=== PATIENT | male | born 1955 | race Caucasian/White ===

== ENCOUNTER → 2023-02-16 | Outpatient (CLI) | payer SELFPAY, OTHER ==
--- OUTSIDE RECORDS SUMMARY | 2023-02-16 07:25 | XMS RPT_ITS | CCD ---
Author Name Unknown Address [address] [place] [address] Organization [facility] Care Team Providers Care Sampler First Name Role Phone Unavailable Primary Care Provider Unavailabl e HENRY LERMA MD Referring Unavailable KEVIN SORIANO MD Admitting Unavailable KEVIN SORIANO MD Primary Care Unavailable KEVIN SORIANO MD Attending Unavailable HENRY LERMA MD Consulting Unavailable PROVIDER, UNKNOWN Consulting Unavailable PROVIDER, UNKNOWN Consulting Unavailable PROVIDER, UNKNOWN Consulting Unavailable HENRY LERMA MD Consulting Unavailable CAVANAUGHSENIA Price T Admitting Unavailable CAVANAUGHKATRIN PriceSENIA T Primary Care Unavailable SENIA CAVANAUGH Attending Unavailable PROVIDER, UNKNOWN Consulting Unavailable PROVIDER, UNKNOWN Consulting Unavailable PROVIDER, UNKNOWN Consulting Unavailable HENRY LERMA MD Consulting Unavailable HENRY LERMA MD Attending Unavailable HENRY LERMA MD Admitting Unavailable HENRY LERMA MD Primary Care Unavailable PROVIDER, UNKNOWN Consulting Unavailable PROVIDER, UNKNOWN Consulting Unavailable PROVIDER, UNKNOWN Consulting Unavailable WANDA, FANNY Carranza Attending Unavailable GIGAX, FANNY Carranza Attending Unavailable GIGAX, FANNY Carranza Attending Unavailable GIGAX, FANNY TRAORE Attending Unavailable GIGAX, FANNY TRAORE Attending Unavailable GIGAX, FANNY TRAORE Attending Unavailable GIGAX, FANNY TRAORE Attending Unavailable GIGAX, FANNY TRAORE Attending Unavailable GIGAX, FANNY Carranza Referring Unavailable GIGAX, FANNY TRAORE Attending Unavailable Medications Current Medications Medication Drug Class(es) Dates Sig (Normalized) Sig (Original) iv contrast (will be provided with radiology test) (1 source) Start: 10-08-2022 End: 10-09-2022 iv contrast (will be provided with radiology test) Indications: Elevated PSA , Encounter for observation for other suspected diseases and conditions ruled out MRI Prostate Inject, intravenously, once for 1 dose. No IV access, insert saline lock prior to the beginning of sedation, infusion, injection of imaging exam. Discontinue saline lock post exam. If Pt. has a central line or IVAD, may access for administration according to line specific nursing protocol. Once exam is complete flush line and de-access according to line specific nursing protocol in the MR contrast administration guidelines link. 1 Each 0 10/08/2022 10/09/2022 Active Completed/Discontinued Medications Medication Drug Class(es) Dates Sig (Normalized) Sig (Original) lisinopril 10 mg oral tablet (1 source) Angiotensin Converting Enzyme Inhibitor Start: 12-20-2022 take 1 tablet by mouth once lisinopril (ZESTRIL) 10 mg tablet Take 1 tablet by mouth every afternoon. 0 12/20/2022 Active Problems Active Problems Problem Classification Problem Date Documented Da te Episodic/Chronic Cancer of bladder (1 source) Malignant neoplasm of lateral wall of urinary bladder; Translations: [Malignant neoplasm of lateral wall of bladder] Chronic Cancer of bladder (3 sources) H/O: malignant neoplasm; Translations: [Personal history of malignant neoplasm of bladder] Onset: 01-17-2023 01-17-2023 Episodic Other aftercare (1 source) History of bladder neoplasm; Translations: [Encounter for follow-up examination after completed treatment for malignant neoplasm] 10-08-2022 Episodic Other screening for suspected conditions (not mental disorders or infectious disease) (12 sources) Abnormal findings on diagnostic imaging of urinary organs; Translations: [Abnormal radiologic findings on diagnostic imaging of renal pelvis, ureter, or bladder] Onset: 12-25-2022 Episodic Past or Other Problems Problem Classification Problem Date Documented Da te Episodic/Chronic Unclassified (1 source) MALIGNANT NEOPLASM OF LATERALL WALL OF BLADDER Onset: 06-27-2022 Results Test Name Value Interpretation Reference Range Facil ity Vital Signs Date Time Vital Sign Value Performing Clinician Miguel arce 01-17-2023 15:23-0500 Body height 188 cm Fanny Schwartz MD Work Phone: [facility] 01-17-2023 15:23-0500 Body weight 113.4 kg Fanny Schwartz MD Work Phone: [facility] 01-17-2023 15:23-0500 Diastolic blood pressure 90 mm[Hg] Fanny Schwartz MD Work Phone: [facility] 01-17-2023 15:23-0500 Systolic blood pressure 155 mm[Hg] Fanny Schwartz MD Work Phone: [facility] 10-08-2022 13:00-0400 Body height 188 cm Fanny Schwartz MD Work Phone: [facility] 10-08-2022 13:00-0400 Body weight 112.99 kg Fanny Schwartz MD Work Phone: [facility] 10-08-2022 13:00-0400 Diastolic blood pressure 84 mm[Hg] Fanny Schwartz MD Work Phone: [facility] 10-08-2022 13:00-0400 Heart rate 70 /min Fanny Schwartz MD Work Phone: [facility] 10-08-2022 13:00-0400 Systolic blood pressure 141 mm[Hg] Fanny Schwartz MD Work Phone: [facility] 06-25-2022 08:44-0400 Body height 188 cm Fanny Schwartz MD Work Phone: [facility] 06-25-2022 08:44-0400 Body weight 113.4 kg Fanny Schwartz MD Work Phone: [facility] 06-12-2022 13:00-0400 Body height 188 cm Fanny Schwartz MD Work Phone: [facility] 06-12-2022 13:00-0400 Body weight 113.4 kg Fanny Schwartz MD Work Phone: [facility] 06-12-2022 13:00-0400 Diastolic blood pressure 79 mm[Hg] Fanny Schwartz MD Work Phone: [facility] 06-12-2022 13:00-0400 Heart rate 58 /min Fanny Schwartz MD Work Phone: [facility] 06-12-2022 13:00-0400 SaO2% (BldA) [Mass fraction] 96 % Fanny Schwartz MD Work Phone: [facility] 06-12-2022 13:00-0400 Systolic blood pressure 134 mm[Hg] Fanny Schwatrz MD Work Phone: [facility] Encounters Encounter Date Encounter Type Care Provider Facility Start: 01-17-2023 End: 01-17-2023 ambulatory FANNY SCHWARTZ Facility:[id number] Start: 01-17-2023 End: 01-17-2023 Patient encounter procedure Fanny Schwartz MD Work Phone: [facility] Urology Procedures Date Procedure Procedure Detail Performing Clinician Start: 10-05-2022 PSA screening FANNY HOLDERTl Plan of Treatment Date Care Activity Detail Author Start: 12-18-2032 Urine microalbumin profile DTaP,Tdap,Td Vaccine (3 - Td or Tdap) [facility] Start: 10-06-2027 PROSTATE CANCER SCREENING DISCUSSION PROSTATE CANCER SCREENING DISCUSSION [facility] Start: 06-26-2027 PROSTATE CANCER SCREENING DISCUSSION PROSTATE CANCER SCREENING DISCUSSION [facility] Start: 06-25-2025 DIABETES SCREEN DIABETES SCREEN [facility] Start: 06-25-2025 Diabetes Screening Diabetes Screenmratinez g [facility] Start: 04-18-2023 End: 07-18-2023 Prostate specific Ag [Mass/volume] in Serum or Plasma PSA/PROSTSPECAG DIAG Lab Routine Elevated PSA Expected: 04/18/2023, Expires: 07/18/2023 [facility] Work Phone: Payers Date Payer Category Payer Unknown [id number] [id number] [id number] 1955 Unknown [id number] Self-pay [id number] Unknown 62 Unknown [id number] [id number] Unknown [id number] 2.16.8 [id number] Unknown [id number] [id number] [id number] Social History Date Type Detail [facility] Start: 1955 Sex Assigned At Not on file [facility] Start: 05-16-2022 [facility] Never smoked tobacco [facility] Start: 05-16-2022 Tobacco use and exposure Smokeless t obacco non-user [facility] Start: 06-12-2022 End: 01-17-2023 Alcohol intake Lifetime non-drinker (finding) [facility] Start: 06-25-2022 End: 10-08-2022 History of Social function [facility] Start: 06-25-2022 End: 10-08-2022 Tobacco use panel [facility] National Score (1-10 0), lower number is lower risk 32 [facility] Clinical Notes 05-15-2022 to 01-17-2023 Fanny Schwartz MD - 01/17/2023 3:49 PM Janine John RT(R) - 12/25/2022 7:30 AM Fanny Salinas MD - 10/08/2022 1:46 PM EDTGFanny arrington MD - 10/08/2022 1:46 PM EDT Note Date & Type Note Facility 01-17-2023 Note HNO ID: [id number] Author: Fanny Schwartz MD Service: ? Author Type: Physician Type: Progress Notes Filed: 01/17/2023 4:39 PM Note Text: January 17, 2023 Reason for Appointment Patient presents with: Follow Up: PT has no urinary complaints. RENAE Haskinskyleigh Lerma is a 67 year old male who presents today for a follow-up appointment to discuss the results of his recent MRI. The patient really had no problems following the MRI. The MRI did reveal a potential abnormality in his bladder however the patient just recently underwent cystoscopy which was negative. He had no clinical complaints today. Current Medications lisinopril (ZESTRIL) 10 mg tablet Take 1 tablet by mouth every afternoon. OTC PRODUCT Probiotic OTC PRODUCT Vitamin E OTC PRODUCT Enzymes PAST MEDICAL HISTORY Diagnosis Date Essential hypertension PAST SURGICAL HISTORY Procedure Laterality Date APPENDECTOMY ; PARATHYROIDECTOMY/EXPL PARATHYRD done by Dr. Porter CYSTOSCOPY 06/27/2022 Cysto with biopsy and fulguration of small bladder lesion PAST SURGICAL HISTORY OF 10/10/2017 right CTS release done by Moises Lerma FAMILY HISTORY Problem Relation Age of Onset Hypertension Mother Hypertension Father other (history of asthma) Father No Known Problems Sister Prostate Cancer Brother Social History Tobacco Use Smoking status: Never Smokeless tobacco: Never Vaping Use Vaping Use: Never used Substance Use Topics Alcohol use: Never Drug use: Never ALLERGIES No Known Allergies Objective BP 155/90 Ht 6' 2 (1.88m) Wt 250 lb (113.4kg) BMI 32.08 kg/(m2). Physical Exam Constitutional: Appearance: Normal appearance. Pulmonary: Effort: Pulmonary effort is normal. Neurological: Mental Status: He is alert and oriented to person, place, and time. ASSESSMENT/PLAN: 1. Elevated PSA - ICD9: 790.93, ICD10: R97.20 (primary diagnosis) The patient's most recent PSA was up to 4.9 ng/mL. The MRI revealed a PI-RADS 3 lesion in the transition zone. I had a long conversation with him and his discussing how to proceed. I explained to them that the risk of high-grade malignancy is actually fairly low with a PI-RADS 3 lesion. After discussing his options the patient said that he would like to proceed with close follow-up regarding the PSA. We will see him back in 3 months with another PSA prior to the visit. The patient does understand that there is a risk of prostate cancer and not proceeding with a biopsy could result in delay of diagnosis. If the PSA seems to be rising precipitously then we will revisit the biopsy. - PSA/PROSTSPECAG DIAG 2. Personal history of malignant neoplasm of bladder - ICD9: V10.51, ICD10: Z85.51 The patient cystoscopy was negative in September. He will be due for his repeat cystoscopy in September of next year. Fanny Schwartz MD Follow Up Return in about 3 months (around 04/18/2023) for PSA prior. [facility] 01-17-2023 History of Presen t illness Narrative January 17, 2023 Reason for Appointment Patient presents with: Follow Up: PT has no urinary complaints. HPI David Lerma is a 67 year old male who presents today for a follow-up appointment to discuss the results of his recent MRI. The patient really had no problems following the MRI. The MRI did reveal a potential abnormality in his bladder however the patient just recently underwent cystoscopy which was negative. He had no clinical complaints today. Current Medications lisinopril (ZESTRIL) 10 mg tablet Take 1 tablet by mouth every afternoon. OTC PRODUCT Probiotic OTC PRODUCT Vitamin E OTC PRODUCT Enzymes PAST MEDICAL HISTORY Diagnosis Date Essential hypertension PAST SURGICAL HISTORY Procedure Laterality Date APPENDECTOMY ; PARATHYROIDECTOMY/EXPL PARATHYRD done by Dr. Porter CYSTOSCOPY 06/27/2022 Cysto with biopsy and fulguration of small bladder lesion PAST SURGICAL HISTORY OF 10/10/2017 right CTS release done by Moises Lerma FAMILY HISTORY Problem Relation Age of Onset Hypertension Mother Hypertension Father other (history of asthma) Father No Known Problems Sister Prostate Cancer Brother Social History Tobacco Use Smoking status: Never Smokeless tobacco: Never Vaping Use Vaping Use: Never used Substance Use Topics Alcohol use: Never Drug use: Never ALLERGIES No Known Allergies Objective BP 155/90 Ht 6' 2 (1.88m) Wt 250 lb (113.4kg) BMI 32.08 kg/(m^2). Physical Exam Constitutional: Appearance: Normal appearance. Pulmonary: Effort: Pulmonary effort is normal. Neurological: Mental Status: He is alert and oriented to person, place, and time. ASSESSMENT/PLAN: 1. Elevated PSA - ICD9: 790.93, ICD10: R97.20 (primary diagnosis) The patient's most recent PSA was up to 4.9 ng/mL. The MRI revealed a PI-RADS 3 lesion in the transition zone. I had a long conversation with him and his discussing how to proceed. I explained to them that the risk of high-grade malignancy is actually fairly low with a PI-RADS 3 lesion. After discussing his options the patient said that he would like to proceed with close follow-up regarding the PSA. We will see him back in 3 months with another PSA prior to the visit. The patient does understand that there is a risk of prostate cancer and not proceeding with a biopsy could result in delay of diagnosis. If the PSA seems to be rising precipitously then we will revisit the biopsy. - PSA/PROSTSPECAG DIAG 2. Personal history of malignant neoplasm of bladder - ICD9: V10.51, ICD10: Z85.51 The patient cystoscopy was negative in September. He will be due for his repeat cystoscopy in September of next year. Fanny Schwartz MD Follow Up Return in about 3 months (around 04/18/2023) for PSA prior. documented in this encounter [facility] 12-25-2022 Note HNO ID: [id number] Author: Janine Hilliard RT(R) Service: Radiology Author Type: Technologist Type: Progress Notes Filed: 12/25/2022 7:36 AM Note Text: Radiology Service Progress Note DATE OF SERVICE: December 25, 2022 TIME: 7:30 AM PATIENT IDENTITY VERIFICATION COMPLETED USING TWO (2) STANDARD IDENTIFIERS: Name and Date of confirmed by patient verbally. FALL SCREENING: Has the patient had 2 falls in the last year or 1 fall with injury or currently using an Ambulatory Assistive Device (Walker, Cane, Wheelchair, Crutches, etc.)? No PATIENT GENDER DATA: Male PATIENT RELEVANT IMPLANT DATA REVIEWED: Yes ALLERGIES: Reviewed and unchanged CONTRAST ALLERGY: NO. EXAM: MRI - CONTRAST TYPE: GROUP II PERIPHERAL IV DATA: Ambulatory: A peripheral IV was started in the Left antecubital site with a Angio cath: 22 gauge. RADIOLOGY DEPARTMENT: MR; Exam(s) Completed: Body: Prostate SIGNATURE: RT Carlitos(R) PATIENT NAME: David Lerma DATE: December 25, 2022 TIME: 7:[address] [facility] 12-25-2022 History of Presen t illness Narrative Radiology Service Progress Note DATE OF SERVICE: December 25, 2022 TIME: 7:30 AM PATIENT IDENTITY VERIFICATION COMPLETED USING TWO (2) STANDARD IDENTIFIERS: Name and Date of confirmed by patient verbally. FALL SCREENING: Has the patient had 2 falls in the last year or 1 fall with injury or currently using an Ambulatory Assistive Device (Walker, Cane, Wheelchair, Crutches, etc.)? No PATIENT GENDER DATA: Male PATIENT RELEVANT IMPLANT DATA REVIEWED: Yes ALLERGIES: Reviewed and unchanged CONTRAST ALLERGY: NO. EXAM: MRI - CONTRAST TYPE: GROUP II PERIPHERAL IV DATA: Ambulatory: A peripheral IV was started in the Left antecubital site with a Angio cath: 22 gauge. RADIOLOGY DEPARTMENT: MR; Exam(s) Completed: Body: Prostate SIGNATURE: RT Carlitos(R) PATIENT NAME: David Lerma DATE: December 25, 2022 TIME: 7:30 AM documented in this encounter [facility] 10-08-2022 Note HNO ID: [id number] Author: Fanny Schwartz MD Service: ? Author Type: Physician Type: Progress Notes Filed: 10/08/2022 1:48 PM Note Text: October 08, 2022 Reason for Appointment Patient presents with: Cystoscopy-1: Denies any new urinary pain or problems. Denies bloody urine. HPI David Lerma is a 67 year old male who presents today for a follow-up appointment as well as cystoscopy. Overall the patient is doing well. He said that he is urinating without any difficulty. He feels like he has a good force of stream and denies hesitancy or incomplete emptying. The patient underwent a serum PSA determination recently and it was up to 4.9 ng/mL. Current Medications iv contrast (will be provided with radiology test) MRI Prostate Inject, intravenously, once for 1 dose. No IV access, insert saline lock prior to the beginning of sedation, infusion, injection of imaging exam. Discontinue saline lock post exam. If Pt. has a central line or IVAD, may access for administration according to line specific nursing protocol. Once exam is complete flush line and de-access according to line specific nursing protocol in the MR contrast administration guidelines link. OTC PRODUCT Probiotic OTC PRODUCT Vitamin E OTC PRODUCT Enzymes History reviewed. No pertinent past medical history. PAST SURGICAL HISTORY Procedure Laterality Date APPENDECTOMY ; PARATHYROIDECTOMY/EXPL PARATHYRD done by Dr. Porter CYSTOSCOPY 06/27/2022 Cysto with biopsy and fulguration of small bladder lesion PAST SURGICAL HISTORY OF 10/10/2017 right CTS release done by Moises Lerma FAMILY HISTORY Problem Relation Age of Onset Hypertension Mother Hypertension Father other (history of asthma) Father No Known Problems Sister Prostate Cancer Brother Social History Tobacco Use Smoking status: Never Smokeless tobacco: Never Vaping Use Vaping Use: Never used Substance Use Topics Alcohol use: Never Drug use: Never ALLERGIES No Known Allergies Objective BP 141/84 Pulse 70 Ht 6' 2 (1.88m) Wt 249 lb 1.6 oz (113.0kg) BMI 31.97 kg/(m2). Physical Exam Constitutional: Appearance: Normal appearance. Pulmonary: Effort: Pulmonary effort is normal. Neurological: Mental Status: He is alert and oriented to person, place, and time. ASSESSMENT/PLAN: 1. Encounter for follow-up surveillance of bladder cancer - ICD9: V67.9, V10.51, ICD10: Z08, Z85.51 (primary diagnosis) The patient underwent surveillance cystoscopy which was negative for recurrence. He just needs annual cystoscopy going forward. 2. Elevated PSA - ICD9: 790.93, ICD10: R97.20 The patient's PSA is trending upward. I explained to him that this can be an indicator of prostate cancer. I recommended that we make arrangements for him to undergo an MRI of the prostate. We did discuss the fact that if it shows any concerning lesions we would need to consider a fusion biopsy. - MRI PROSTATE WO/W IVCON - MRI 3D POST PROCESSING - IV CONTRAST (RADIOLOGY PROCEDURE) 3. Encounter for observation for other suspected diseases and conditions ruled out - ICD9: V71.89, ICD10: Z03.89 - MRI PROSTATE WO/W IVCON - MRI 3D POST PROCESSING - IV CONTRAST (RADIOLOGY PROCEDURE) Fanny Schwartz MD Follow Up Return for After MRI. [facility] 10-08-2022 Note HNO ID: [id number] Author: Fanny Schwartz MD Service: ? Author Type: Physician Type: Procedures Filed: 10/08/2022 2:02 PM Note Text: October 08, 2022 Reason for Appointment Patient presents with: Cystoscopy-1: Denies any new urinary pain or problems. Denies bloody urine. RENAE Lerma is a 67 year old male who presents today for cystoscopy. Pre op dx: History of bladder cancer Post op dx: Same Procedure: Flexible cystoscopy Description of procedure: The patient was taken to the procedure room and an appropriate informed consent was obtained. He was placed in the supine position on the procedure table and prepped in the usual fashion. 2% Xylocaine- jelly was instilled into the urethra in a retrograde fashion. The flexible cystoscope was inserted through the urethra into the bladder The entire bladder mucosa was scrutinized and there were no stones, tumors, or foreign bodies. The ureteral orifices were in their normal location and configuration. With retroflexion of the scope there was no evidence of pathology the bladder neck. As the scope was withdrawn the prostatic fossa was carefully evaluated and there was moderate macroscopic BPH. The remainder of the urethra was normal. The patient tolerated the procedure well. BP 141/84 Pulse 70 Ht 6' 2 (1.88m) Wt 249 lb 1.6 oz (113.0kg) BMI 31.97 kg/(m2). Physical Exam UNIVERSAL PROTOCOL / SAFETY CHECKLIST Procedure to be Performed: cysto Sign In: A Moment of CARE was completed. Personnel directly involved with the procedure wore the appropriate PPE (Personal Protective Equipment). No special equipment needed. Patient/Surrogate Stated/Verified: PATIENT VERIFIED(optional for EMERGENT procedures): Patient name, Date of , Relevant allergies, and The intended procedure Time Out Communication: Intended patient and procedure match the source documents. Consent documented and matches the intended procedure. No relevant labs, photos, and/or imaging studies were applicable for review. No correct side/site applicable for marking and visibility. Medications required for procedure verified. No fire risk assessment and interventions applicable. No implant(s) inserted. Sign Out: SIGN OUT (optional for EMERGENT procedures): No specimen collected. All instruments, equipment, possible retained foreign bodies accounted for. Post-procedure follow-up management communicated and Plan of Care Visit completed when applicable. Radha Hogan RN Return for After MRI. [facility] 10-08-2022 History of Presen t illness Narrative October 08, 2022 Reason for Appointment Patient presents with: Cystoscopy-1: Denies any new urinary pain or problems. Denies bloody urine. RENAE Lerma is a 67 year old male who presents today for a follow-up appointment as well as cystoscopy. Overall the patient is doing well. He said that he is urinating without any difficulty. He feels like he has a good force of stream and denies hesitancy or incomplete emptying. The patient underwent a serum PSA determination recently and it was up to 4.9 ng/mL. Current Medications iv contrast (will be provided with radiology test) MRI Prostate Inject, intravenously, once for 1 dose. No IV access, insert saline lock prior to the beginning of sedation, infusion, injection of imaging exam. Discontinue saline lock post exam. If Pt. has a central line or IVAD, may access for administration according to line specific nursing protocol. Once exam is complete flush line and de-access according to line specific nursing protocol in the MR contrast administration guidelines link. OTC PRODUCT Probiotic OTC PRODUCT Vitamin E OTC PRODUCT Enzymes History reviewed. No pertinent past medical history. PAST SURGICAL HISTORY Procedure Laterality Date APPENDECTOMY ; PARATHYROIDECTOMY/EXPL PARATHYRD done by Dr. Porter CYSTOSCOPY 06/27/2022 Cysto with biopsy and fulguration of small bladder lesion PAST SURGICAL HISTORY OF 10/10/2017 right CTS release done by Moises Lerma FAMILY HISTORY Problem Relation Age of Onset Hypertension Mother Hypertension Father other (history of asthma) Father No Known Problems Sister Prostate Cancer Brother Social History Tobacco Use Smoking status: Never Smokeless tobacco: Never Vaping Use Vaping Use: Never used Substance Use Topics Alcohol use: Never Drug use: Never ALLERGIES No Known Allergies Objective BP 141/84 Pulse 70 Ht 6' 2 (1.88m) Wt 249 lb 1.6 oz (113.0kg) BMI 31.97 kg/(m^2). Physical Exam Constitutional: Appearance: Normal appearance. Pulmonary: Effort: Pulmonary effort is normal. Neurological: Mental Status: He is alert and oriented to person, place, and time. ASSESSMENT/PLAN: 1. Encounter for follow-up surveillance of bladder cancer - ICD9: V67.9, V10.51, ICD10: Z08, Z85.51 (primary diagnosis) The patient underwent surveillance cystoscopy which was negative for recurrence. He just needs annual cystoscopy going forward. 2. Elevated PSA - ICD9: 790.93, ICD10: R97.20 The patient's PSA is trending upward. I explained to him that this can be an indicator of prostate cancer. I recommended that we make arrangements for him to undergo an MRI of the prostate. We did discuss the fact that if it shows any concerning lesions we would need to consider a fusion biopsy. - MRI PROSTATE WO/W IVCON - MRI 3D POST PROCESSING - IV CONTRAST (RADIOLOGY PROCEDURE) 3. Encounter for observation for other suspected diseases and conditions ruled out - ICD9: V71.89, ICD10: Z03.89 - MRI PROSTATE WO/W IVCON - MRI 3D POST PROCESSING - IV CONTRAST (RADIOLOGY PROCEDURE) Fanny Schwartz MD Follow Up Return for After MRI. documented in this encounter [facility] 10-08-2022 Procedure note October 08, 2022 Reason for Appointment Patient presents with: Cystoscopy-1: Denies any new urinary pain or problems. Denies bloody urine. HPI David Lerma is a 67 year old male who presents today for cystoscopy. Pre op dx: History of bladder cancer Post op dx: Same Procedure: Flexible cystoscopy Description of procedure: The patient was taken to the procedure room and an appropriate informed consent was obtained. He was placed in the supine position on the procedure table and prepped in the usual fashion. 2% Xylocaine- jelly was instilled into the urethra in a retrograde fashion. The flexible cystoscope was inserted through the urethra into the bladder The entire bladder mucosa was scrutinized and there were no stones, tumors, or foreign bodies. The ureteral orifices were in their normal location and configuration. With retroflexion of the scope there was no evidence of pathology the bladder neck. As the scope was withdrawn the prostatic fossa was carefully evaluated and there was moderate macroscopic BPH. The remainder of the urethra was normal. The patient tolerated the procedure well. BP 141/84 Pulse 70 Ht 6' 2 (1.88m) Wt 249 lb 1.6 oz (113.0kg) BMI 31.97 kg/(m^2). Physical Exam UNIVERSAL PROTOCOL / SAFETY CHECKLIST Procedure to be Performed: cysto Sign In: A Moment of CARE was completed. Personnel directly involved with the procedure wore the appropriate PPE (Personal Protective Equipment). No special equipment needed. Patient/Surrogate Stated/Verified: PATIENT VERIFIED(optional for EMERGENT procedures): Patient name, Date of , Relevant allergies, and The intended procedure Time Out Communication: Intended patient and procedure match the source documents. Consent documented and matches the intended procedure. No relevant labs, photos, and/or imaging studies were applicable for review. No correct side/site applicable for marking and visibility. Medications required for procedure verified. No fire risk assessment and interventions applicable. No implant(s) inserted. Sign Out: SIGN OUT (optional for EMERGENT procedures): No specimen collected. All instruments, equipment, possible retained foreign bodies accounted for. Post-procedure follow-up management communicated and Plan of Care Visit completed when applicable. Radha Hogan RN Return for After MRI. documented in this encounter [facility] 07-06-2022 Note HNO ID: [id number] Author: Fanny Schwartz MD Service: ? Author Type: Physician Type: Progress Notes Filed: 07/06/2022 10:55 AM Note Text: July 06, 2022 Reason for Appointment Patient presents with: Follow Up: 2 week Surgery F/u. Pt states he is doing well. RENAE David Lerma is a 66 year old male who presents today for a follow-up appointment. Clinically the patient has done very well since his recent bladder biopsy and fulguration. The patient said that he really had no problems following the procedure. He notes that his urine has been clear. The histology was consistent with a low-grade transitional cell carcinoma. There was no evidence of invasion. The patient underwent a serum PSA determination prior to the procedure and it was slightly elevated at 4.2 ng/mL. Current Medications OTC PRODUCT Probiotic OTC PRODUCT Vitamin E OTC PRODUCT Enzymes History reviewed. No pertinent past medical history. PAST SURGICAL HISTORY Procedure Laterality Date APPENDECTOMY ; PARATHYROIDECTOMY/EXPL PARATHYRD done by Dr. Porter CYSTOSCOPY 06/27/2022 Cysto with biopsy and fulguration of small bladder lesion PAST SURGICAL HISTORY OF 10/10/2017 right CTS release done by Moises Lerma FAMILY HISTORY Problem Relation Age of Onset Hypertension Mother Hypertension Father other (history of asthma) Father No Known Problems Sister Prostate Cancer Brother Social History Tobacco Use Smoking status: Never Smokeless tobacco: Never Vaping Use Vaping Use: Never used Substance Use Topics Alcohol use: Never Drug use: Never ALLERGIES No Known Allergies Objective BP 133/78 Pulse 58 Ht 6' 2 (1.88m) Wt 250 lb (113.4kg) SpO2 98% BMI 32.08 kg/(m2). Physical Exam Constitutional: Appearance: Normal appearance. Pulmonary: Effort: Pulmonary effort is normal. Neurological: Mental Status: He is alert and oriented to person, place, and time. ASSESSMENT/PLAN: 1. Malignant neoplasm of lateral wall of urinary bladder (HCC) - ICD9: 188.2, ICD10: C67.2 (primary diagnosis) The patient is a 66-year-old white male with a new diagnosis of low-grade, noninvasive transitional cell carcinoma. I went over this diagnosis in detail with him and his today. We discussed the fact that there is a very low likelihood of metastatic disease however there is a risk of recurrence. Therefore, we will plan to see him back in 3 months for cystoscopy. All of their questions were answered today. - PSA/PROSTSPECAG DIAG 2. Elevated PSA - ICD9: 790.93, ICD10: R97.20 The patient's PSA was mildly elevated. We will plan to repeat it prior to his next appointment. Fanny Schwartz MD Follow Up Return in about 3 months (around 10/06/2022) for Cysto, PSA prior. [facility] 06-25-2022 Note HNO ID: [id number] Author: Fanyn Schwartz MD Service: ? Author Type: Physician Type: Procedures Filed: 06/25/2022 9:34 AM Note Text: June 25, 2022 Reason for Appointment Patient presents with: Cystoscopy-1: Denies any urinary pain or problems. RENAE Lerma is a 66 year old male who presents today for cystoscopy. Pre op dx: Possible bladder tumor Post op dx: Small bladder tumors right lateral wall Procedure: Flexible cystoscopy Description of procedure: The patient was taken to the procedure room and an appropriate informed consent was obtained. He was placed in the supine position on the procedure table and prepped in the usual fashion. 2% Xylocaine- jelly was instilled into the urethra in a retrograde fashion. The flexible cystoscope was inserted through the urethra into the bladder The entire bladder mucosa was scrutinized and adjacent to the right ureteral orifice was a small papillary tumor. There was also an additional tiny tumor more laterally on the right lateral wall. The ureteral orifices were in their normal location and configuration. With retroflexion of the scope there was no evidence of pathology the bladder neck. As the scope was withdrawn the prostatic fossa was carefully evaluated and there was moderate macroscopic BPH. The remainder of the urethra was normal. The patient tolerated the procedure well. Ht 6' 2 (1.88m) Wt 250 lb (113.4kg) BMI 32.08 kg/(m2). Physical Exam UNIVERSAL PROTOCOL / SAFETY CHECKLIST Procedure to be Performed: Cysto Sign In: A Moment of CARE was completed. Personnel directly involved with the procedure wore the appropriate PPE (Personal Protective Equipment). No special equipment needed. Patient/Surrogate Stated/Verified: PATIENT VERIFIED(optional for EMERGENT procedures): Patient name, Date of , Relevant allergies, and The intended procedure Time Out Communication: Intended patient and procedure match the source documents. Consent documented and matches the intended procedure. Relevant labs, photos, and/or imaging studies have been reviewed. No correct side/site applicable for marking and visibility. Medications required for procedure verified. No fire risk assessment and interventions applicable. No implant(s) inserted. Sign Out: SIGN OUT (optional for EMERGENT procedures): No specimen collected. All instruments, equipment, possible retained foreign bodies accounted for. Post-procedure follow-up management communicated and Plan of Care Visit completed when applicable. Radha Hogan Return for Schedule surgery. [facility] 06-25-2022 Note HNO ID: [id number] Author: Fanny Schwartz MD Service: ? Author Type: Physician Type: Progress Notes Filed: 06/25/2022 9:32 AM Note Text: June 25, 2022 Reason for Appointment Patient presents with: Cystoscopy-1: Denies any urinary pain or problems. RENAE Lerma is a 66 year old male who presents today for cystoscopy. The patient denies interval complaints. Again, he underwent a CT scan which revealed a potential bladder mass. Current Medications OTC PRODUCT Probiotic OTC PRODUCT Vitamin E OTC PRODUCT Enzymes History reviewed. No pertinent past medical history. PAST SURGICAL HISTORY Procedure Laterality Date APPENDECTOMY ; PARATHYROIDECTOMY/EXPL PARATHYRD done by Dr. Porter PAST SURGICAL HISTORY OF 10/10/2017 right CTS release done by Moises Lerma FAMILY HISTORY Problem Relation Age of Onset Hypertension Mother Hypertension Father other (history of asthma) Father No Known Problems Sister Prostate Cancer Brother Social History Tobacco Use Smoking status: Never Smokeless tobacco: Never Vaping Use Vaping Use: Never used Substance Use Topics Alcohol use: Never Drug use: Never ALLERGIES No Known Allergies Objective Ht 6' 2 (1.88m) Wt 250 lb (113.4kg) BMI 32.08 kg/(m2). Physical Exam Constitutional: Appearance: Normal appearance. HENT: Head: Normocephalic. Nose: Nose normal. Cardiovascular: Rate and Rhythm: Normal rate and regular rhythm. Heart sounds: Normal heart sounds. No murmur heard. Pulmonary: Effort: Pulmonary effort is normal. Breath sounds: Normal breath sounds. No wheezing or rales. Abdominal: General: Bowel sounds are normal. Palpations: There is no hepatomegaly or splenomegaly. Tenderness: There is no abdominal tenderness. There is no guarding. Hernia: No hernia is present. Musculoskeletal: Cervical back: Neck supple. Lumbar back: Normal. Lymphadenopathy: Cervical: No cervical adenopathy. Skin: Findings: No rash. Nails: There is no clubbing. Neurological: Mental Status: He is oriented to person, place, and time. ASSESSMENT/PLAN: 1. 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 I explained to him that these are likely very low-grade transitional cell carcinoma. I recommended we make arrangements for him to go to the operating room for cystoscopy, biopsy and fulguration of these lesions. Given that these have a well differentiated appearance we will not plan to administer Mitomycin-C. I went over the procedure in detail with him and his today. We discussed potential risks, benefits, and alternatives. They both expressed understanding of the procedure as well as its attendant risks and want to proceed. We will also get a screening PSA at the time of his blood draw. - BASIC METABOLIC PNL - CBC - URINE CULTURE - UNION UROL SURGICAL PROCEDURES - PSASc 2. Screening for heart disease - ICD9: V81.2, ICD10: Z13.6 Preop EKG. - ECG COMPLETE Fanny Schwartz MD Follow Up Return for Schedule surgery. [facility] 06-25-2022 Procedure note June 25, 2022 Reason for Appointment Patient presents with: Cystoscopy-1: Denies any urinary pain or problems. RENAE Lerma is a 66 year old male who presents today for cystoscopy. Pre op dx: Possible bladder tumor Post op dx: Small bladder tumors right lateral wall Procedure: Flexible cystoscopy Description of procedure: The patient was taken to the procedure room and an appropriate informed consent was obtained. He was placed in the supine position on the procedure table and prepped in the usual fashion. 2% Xylocaine- jelly was instilled into the urethra in a retrograde fashion. The flexible cystoscope was inserted through the urethra into the bladder The entire bladder mucosa was scrutinized and adjacent to the right ureteral orifice was a small papillary tumor. There was also an additional tiny tumor more laterally on the right lateral wall. The ureteral orifices were in their normal location and configuration. With retroflexion of the scope there was no evidence of pathology the bladder neck. As the scope was withdrawn the prostatic fossa was carefully evaluated and there was moderate macroscopic BPH. The remainder of the urethra was normal. The patient tolerated the procedure well. Ht 6' 2 (1.88m) Wt 250 lb (113.4kg) BMI 32.08 kg/(m^2). Physical Exam UNIVERSAL PROTOCOL / SAFETY CHECKLIST Procedure to be Performed: Cysto Sign In: A Moment of CARE was completed. Personnel directly involved with the procedure wore the appropriate PPE (Personal Protective Equipment). No special equipment needed. Patient/Surrogate Stated/Verified: PATIENT VERIFIED(optional for EMERGENT procedures): Patient name, Date of , Relevant allergies, and The intended procedure Time Out Communication: Intended patient and procedure match the source documents. Consent documented and matches the intended procedure. Relevant labs, photos, and/or imaging studies have been reviewed. No correct side/site applicable for marking and visibility. Medications required for procedure verified. No fire risk assessment and interventions applicable. No implant(s) inserted. Sign Out: SIGN OUT (optional for EMERGENT procedures): No specimen collected. All instruments, equipment, possible retained foreign bodies accounted for. Post-procedure follow-up management communicated and Plan of Care Visit completed when applicable. Radha Hogan Return for Schedule surgery. documented in this encounter [facility] 06-25-2022 History of Presen t illness Narrative June 25, 2022 Reason for Appointment Patient presents with: Cystoscopy-1: Denies any urinary pain or problems. RENAE David Leram is a 66 year old male who presents today for cystoscopy. The patient denies interval complaints. Again, he underwent a CT scan which revealed a potential bladder mass. Current Medications OTC PRODUCT Probiotic OTC PRODUCT Vitamin E OTC PRODUCT Enzymes History reviewed. No pertinent past medical history. PAST SURGICAL HISTORY Procedure Laterality Date APPENDECTOMY ; PARATHYROIDECTOMY/EXPL PARATHYRD done by Dr. Porter PAST SURGICAL HISTORY OF 10/10/2017 right CTS release done by Moises Lerma FAMILY HISTORY Problem Relation Age of Onset Hypertension Mother Hypertension Father other (history of asthma) Father No Known Problems Sister Prostate Cancer Brother Social History Tobacco Use Smoking status: Never Smokeless tobacco: Never Vaping Use Vaping Use: Never used Substance Use Topics Alcohol use: Never Drug use: Never ALLERGIES No Known Allergies Objective Ht 6' 2 (1.88m) Wt 250 lb (113.4kg) BMI 32.08 kg/(m^2). Physical Exam Constitutional: Appearance: Normal appearance. HENT: Head: Normocephalic. Nose: Nose normal. Cardiovascular: Rate and Rhythm: Normal rate and regular rhythm. Heart sounds: Normal heart sounds. No murmur heard. Pulmonary: Effort: Pulmonary effort is normal. Breath sounds: Normal breath sounds. No wheezing or rales. Abdominal: General: Bowel sounds are normal. Palpations: There is no hepatomegaly or splenomegaly. Tenderness: There is no abdominal tenderness. There is no guarding. Hernia: No hernia is present. Musculoskeletal: Cervical back: Neck supple. Lumbar back: Normal. Lymphadenopathy: Cervical: No cervical adenopathy. Skin: Findings: No rash. Nails: There is no clubbing. Neurological: Mental Status: He is oriented to person, place, and time. ASSESSMENT/PLAN: 1. 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 I explained to him that these are likely very low-grade transitional cell carcinoma. I recommended we make arrangements for him to go to the operating room for cystoscopy, biopsy and fulguration of these lesions. Given that these have a well differentiated appearance we will not plan to administer Mitomycin-C. I went over the procedure in detail with him and his today. We discussed potential risks, benefits, and alternatives. They both expressed understanding of the procedure as well as its attendant risks and want to proceed. We will also get a screening PSA at the time of his blood draw. - BASIC METABOLIC PNL - CBC - URINE CULTURE - UNION UROL SURGICAL PROCEDURES - PSASc 2. Screening for heart disease - ICD9: V81.2, ICD10: Z13.6 Preop EKG. - ECG COMPLETE Fanny Schwartz MD Follow Up Return for Schedule surgery. documented in this encounter [facility] 06-12-2022 Note HNO ID: [id number] Author: Fanny Schwartz MD Service: ? Author Type: Physician Type: Progress Notes Filed: 06/12/2022 1:09 PM Note Text: June 12, 2022 Reason for Appointment Patient presents with: Consult: Bladder mass found on CT. Pt denies any urinary issues. HPI David Lerma is a 66 year old male who presents today for further evaluation of possible bladder lesion. The patient was recently admitted to an outside hospital with chest pain. The work-up was negative however was found to have a possible lesion in his bladder on ultrasound. The patient denies any lower urinary tract symptoms. He also denies any gross hematuria. He notes that he had a PSA about 6 months ago. Current Medications OTC PRODUCT Probiotic OTC PRODUCT Vitamin E OTC PRODUCT Enzymes History reviewed. No pertinent past medical history. PAST SURGICAL HISTORY Procedure Laterality Date APPENDECTOMY ; PARATHYROIDECTOMY/EXPL PARATHYRD done by Dr. Porter PAST SURGICAL HISTORY OF 10/10/2017 right CTS release done by Moises Maria Guadalupe FAMILY HISTORY Problem Relation Age of Onset Hypertension Mother Hypertension Father other (history of asthma) Father No Known Problems Sister Prostate Cancer Brother Social History Tobacco Use Smoking status: Never Smokeless tobacco: Never Substance Use Topics Alcohol use: Never Drug use: Never ALLERGIES No Known Allergies Objective BP 134/79 Pulse 58 Ht 6' 2 (1.88m) Wt 250 lb (113.4kg) SpO2 96% BMI 32.08 kg/(m2). Physical Exam Constitutional: Appearance: Normal appearance. Pulmonary: Effort: Pulmonary effort is normal. Genitourinary: Penis: Normal. Testes: Normal. Comments: Prostate enlarged somewhat, no nodules, NT Neurological: Mental Status: He is alert and oriented to person, place, and time. ASSESSMENT/PLAN: 1. Abnormal radiologic findings on diagnostic imaging of renal pelvis, ureter, or bladder - ICD9: 793.5, ICD10: R93.41 Patient has a possible lesion in his bladder. I explained to him that this could be a bladder cancer. I recommended that he return for flexible cystoscopy for diagnosis. I went over this procedure in detail with him and his today. We discussed potential risks, benefits, and alternatives. The patient expressed understanding of the procedure as well as its attendant risks and wants to proceed. - UA DIP, URINE (POC) Fanny Schwartz MD Follow Up Return for Cysto, also get recent PSA from [facility] . [facility] 06-12-2022 History of Presen t illness Narrative June 12, 2022 Reason for Appointment Patient presents with: Consult: Bladder mass found on CT. Pt denies any urinary issues. HPI David Lerma is a 66 year old male who presents today for further evaluation of possible bladder lesion. The patient was recently admitted to an outside hospital with chest pain. The work-up was negative however was found to have a possible lesion in his bladder on ultrasound. The patient denies any lower urinary tract symptoms. He also denies any gross hematuria. He notes that he had a PSA about 6 months ago. Current Medications OTC PRODUCT Probiotic OTC PRODUCT Vitamin E OTC PRODUCT Enzymes History reviewed. No pertinent past medical history. PAST SURGICAL HISTORY Procedure Laterality Date APPENDECTOMY ; PARATHYROIDECTOMY/EXPL PARATHYRD done by Dr. Porter PAST SURGICAL HISTORY OF 10/10/2017 right CTS release done by Moises Lerma FAMILY HISTORY Problem Relation Age of Onset Hypertension Mother Hypertension Father other (history of asthma) Father No Known Problems Sister Prostate Cancer Brother Social History Tobacco Use Smoking status: Never Smokeless tobacco: Never Substance Use Topics Alcohol use: Never Drug use: Never ALLERGIES No Known Allergies Objective BP 134/79 Pulse 58 Ht 6' 2 (1.88m) Wt 250 lb (113.4kg) SpO2 96% BMI 32.08 kg/(m^2). Physical Exam Constitutional: Appearance: Normal appearance. Pulmonary: Effort: Pulmonary effort is normal. Genitourinary: Penis: Normal. Testes: Normal. Comments: Prostate enlarged somewhat, no nodules, NT Neurological: Mental Status: He is alert and oriented to person, place, and time. ASSESSMENT/PLAN: 1. Abnormal radiologic findings on diagnostic imaging of renal pelvis, ureter, or bladder - ICD9: 793.5, ICD10: R93.41 Patient has a possible lesion in his bladder. I explained to him that this could be a bladder cancer. I recommended that he return for flexible cystoscopy for diagnosis. I went over this procedure in detail with him and his today. We discussed potential risks, benefits, and alternatives. The patient expressed understanding of the procedure as well as its attendant risks and wants to proceed. - UA DIP, URINE (POC) Fanny Schwartz MD Follow Up Return for Cysto, also get recent PSA from [facility] . documented in this encounter [facility] 05-15-2022 Miscellaneous Notes Formattin g of this note might be different from the original. Referral Bladder mass found on CT Schedule w/ Dr Schwartz on 06/12/22 @ 1 pm if patient is agreeable. Left VM for the patient to contact the office. documented in this encounter [facility] Malignant neoplasm of lateral wall of urinary bladder (HCC)- Primary Malignant neoplasm of lateral wall of urinary bladder Screening for heart disease Screening for other and unspecified cardiovascular conditions Screening PSA (prostate specific antigen) Special screening for malignant neoplasm of prostate [facility] Diagnosis Encounter for follow-up surveillance of bladder cancer- Primary Unspecified follow-up examination Elevated PSA Elevated prostate specific antigen (PSA) Encounter for observation for other suspected diseases and conditions ruled out [facility] Diagnosis Elevated PSA Elevated prostate specific antigen (PSA) Encounter for observation for other suspected diseases and conditions ruled out [facility] Diagnosis Elevated PSA- Primary Elevated prostate specific antigen (PSA) Personal history of malignant neoplasm of bladder [facility] Outpatient Procedure (Routine) - Pending Review Specialty Diagnoses / Procedures Referred By Contac t Referred To Contact [facility] Diagnoses Screening for heart disease Procedures ECG COMPLETE ECG ROUTINE ECG W/LEAST 12 LDS W/I&R Fanny Schwartz MD [address] [place] [address] [address] [facility] [place] [address] [place] [id number] Referral ID Status Reason Start Date Expiration Date Visits Requested Visits Authorized [id number] Pending Review Auto-Generat ed Referral 06/25/2022 06/25/2023 1 1 [facility] Summary Purpose Family History No Family History Records FoundNo Family History Records FoundNo Family History Records FoundNo Family History Records FoundNo Family History Records FoundNo Family History Records FoundNo Family History Records FoundNo Family History Records Found Advance Directives No Advanced Directives Records FoundNo Advanced Directives Records FoundNo Advanced Directives Records FoundNo Advanced Directives Records FoundNo Advanced Directives Records FoundNo Advanced Directives Records FoundNo Advanced Directives Records FoundNo Advanced Directives Records Found Reason for Referral Specialty Diagnoses / Procedures Referred By Contac t Referred To Contact [facility] Diagnoses Elevated PSA Encounter for observation for other suspected diseases and conditions ruled out Procedures MRI 3D POST PROCESSING 3D RENDERING W/INTERP&POSTPROC DIFF WORK STATION Fanny Schwartz MD [address] [place] [address] [address] [place] [phone] [id number] Referral ID Status Reason Start Date Expiration Date Visits Requested Visits Authorized [id number] Pending Review Auto-Generat ed Referral 10/08/2022 11/07/2023 1 1 Specialty Diagnoses / Procedures Referred By Contac t Referred To Contact MR IMAGING Diagnoses Elevated PSA Encounter for observation for other suspected diseases and conditions ruled out Procedures MRI PROSTATE WO/W IVCON MRI PELVIS W/O & W/CONTRAST MATERIAL Fanny Schwartz MD [address] [place] [address] [address] [place] [address] [place] [address] Referral ID Status Reason Start Date Expiration Date Visits Requested Visits Authorized [id number] Pending Review Auto-Generat ed Referral 10/08/2022 11/07/2023 1 1 Additional Source Comments (unrecognized sect ion and content) No Status Records FoundNo Status Records FoundNo Status Records FoundNo Status Records FoundNo Status Records FoundNo Status Records FoundNo Status Records FoundNo Status Records Found INFORMATION SOURCE (unrecogn ized section and content) DATE CREATED AUTHOR AUTHOR'S ORGANIZ ATION 01/28/2020 [facility] DATE CREATED AUTHOR AUTHOR'S ORGANIZ ATION 11/28/2021 [facility] ([place]) DATE CREATED AUTHOR AUTHOR'S ORGANIZ ATION 05/25/2022 [facility] DATE CREATED AUTHOR AUTHOR'S ORGANIZ ATION 11/03/2022 [facility] DATE CREATED AUTHOR AUTHOR'S ORGANIZ ATION 12/22/2022 [facility] DATE CREATED AUTHOR AUTHOR'S ORGANIZ ATION 12/29/2022 [facility] DATE CREATED AUTHOR AUTHOR'S ORGANIZ ATION 01/20/2023 [facility] Source Comments (unrecognize d section and content) In the event this informatio n is protected by the Federal Confidentiality of Alcohol and Drug Abuse Patient Records regulations: The Federal rules restrict any use of the information to criminally investigate or prosecute any alcohol or drug abuse patient.[facility] the event this information is protected by the Federal Confidentiality of Alcohol and Drug Abuse Patient Records regulations: The Federal rules restrict any use of the information to criminally investigate or prosecute any alcohol or drug abuse patient.[facility] the event this information is protected by the Federal Confidentiality of Alcohol and Drug Abuse Patient Records regulations: The Federal rules restrict any use of the information to criminally investigate or prosecute any alcohol or drug abuse patient.[facility] the event this information is protected by the Federal Confidentiality of Alcohol and Drug Abuse Patient Records regulations: The Federal rules restrict any use of the information to criminally investigate or prosecute any alcohol or drug abuse patient.[facility] the event this information is protected by the Federal Confidentiality of Alcohol and Drug Abuse Patient Records regulations: The Federal rules restrict any use of the information to criminally investigate or prosecute any alcohol or drug abuse patient.[facility] the event this information is protected by the Federal Confidentiality of Alcohol and Drug Abuse Patient Records regulations: The Federal rules restrict any use of the information to criminally investigate or prosecute any alcohol or drug abuse patient.[facility] the event this information is protected by the Federal Confidentiality of Alcohol and Drug Abuse Patient Records regulations: The Federal rules restrict any use of the information to criminally investigate or prosecute any alcohol or drug abuse patient.[facility] the event this information is protected by the Federal Confidentiality of Alcohol and Drug Abuse Patient Records regulations: The Federal rules restrict any use of the information to criminally investigate or prosecute any alcohol or drug abuse patient.[facility] Reason for Visit (unrecogniz ed section and content) Reason Comments Consult Bladder mass found o n CT. Pt denies any urinary issues. Reason Comments Cystoscopy-1 Denies any urinary p ain or problems. Reason Comments Cystoscopy-1 Denies any new urina ry pain or problems. Denies bloody urine. Specialty Diagnoses / Procedures Referred By Isaiah t Referred To Contact MR IMAGING Diagnoses Elevated PSA [R97.20] Encounter for observation for other suspected diseases and conditions ruled out [Z03.89] Procedures MRI PROSTATE WO/W Fanny Tracey MD [address] [place] [address] [place] [address] Referral ID Status Reason Start Date Expiration Date V isits Requested Visits Authorized [id number] Closed Financial Clearance Required - Self Pay Clearance not met - patient not scheduled & unable to contact patient 10/08/2022 01/06/2023 1 1 Reason Comments Follow Up PT has no urinary co mplaints. FOR RECORDS PERTAINING TO PATIENTS WHO ARE OR HAVE BEEN ENROLLED IN A CHEMICAL DEPENDENCY/SUBSTANCEABUSE PROGRAM, SOME INFORMATION MAY BE OMITTED. This clinical summary was aggregated from multiple sources. Caution should be exercised in using it in the provision of clinical care. This summary normalizes information from multiple sources, and as a consequence, information in this document may materially change the coding, format and clinical context of patient data. In addition, data may be omitted in some cases. CLINICAL DECISIONS SHOULD BE BASED ON THE PRIMARY CLINICAL RECORDS. [employer] provides no warranty or guarantee of the accuracy or completeness of information in this document.
--- NOTE | 2023-02-16 07:28 | MRI_ITS ---
EXAM: MR CERVICAL SPINE WITHOUT INTRAVENOUS CONTRAST CLINICAL INDICATION: pain TECHNIQUE: Multiplanar and multisequence MR images of the cervical spine without intravenous contrast were performed. COMPARISON: No relevant prior studies available. FINDINGS: VERTEBRAE: Unremarkable. Normal vertebral bodies and posterior elements. Normal alignment. Normal craniocervical junction and cervicothoracic junction. No spondylolisthesis. There is preservation of the normal cervical lordosis. SPINAL CORD: Unremarkable in signal and morphology. SOFT TISSUES: Unremarkable. No prevertebral soft tissue swelling. LYMPH NODES: Unremarkable. There is no cervical adenopathy. DISCS/SPINAL CANAL/NEURAL FORAMINA: C2-C3: Unremarkable. Normal disc height and morphology. Normal spinal canal. Normal neuroforamina. C3-C4: Unremarkable. Normal disc height and morphology. Normal spinal canal. Normal neuroforamina. C4-C5: Unremarkable. Normal disc height and morphology. Normal spinal canal. Normal neuroforamina. C5-C6: Mild disc space narrowing at C5-6 with mild endplate changes and anterior spondylosis and at least mild bilateral neural foraminal stenosis, mild flattening of the ventral thecal sac. Midline canal roughly 1.2 cm, no martell spinal stenosis. Normal spinal canal. Mild-moderate bilateral neural foraminal stenosis suspected to be greater on the left. C6-C7: Minimal narrowing of the ventral thecal sac due to minimal disc bulge and moderate left neural foraminal stenosis asymmetric disc bulge and mild facet joint hypertrophic changes. The AP diameter of the midline thecal sac is 1 cm, borderline stenotic but there is CSF signal intensity ventral and dorsal to the cord. Anterior mild spondylosis anteriorly bulging disc. C7-T1: Minimal disc changes. MRI/Spine Cervical (Routine) IMPRESSION: Mild multilevel degenerative changes. Borderline spinal stenosis at C6-7. Mild-moderate bilateral C5-6 neural foraminal stenosis and moderate left C6-7 neural foraminal stenosis. Bulging discs and mild spondylosis. No epidural fluid collection. Electronically Signed: Venessa Ge MD at 3:45 EST ,
--- NOTE | 2023-02-16 07:28 | MRI_ITS ---
EXAM: MR LUMBAR SPINE WITHOUT INTRAVENOUS CONTRAST CLINICAL INDICATION: pain TECHNIQUE: Multiplanar and multisequence MR images of the lumbar spine without intravenous contrast. COMPARISON: Plain film showing marked disc space narrowing and moderate predominantly anterior spondylosis and lateral spondylosis throughout most of the lumbar spine and straightening of the usual lordotic curvature FINDINGS: VERTEBRAE: Unremarkable. Vertebral body heights are preserved. Normal vertebral bodies and posterior elements. Normal alignment. No spondylolisthesis. There is preservation of the normal lumbar lordosis. SPINAL CORD: Unremarkable. At the level of T12-L1. Normal position and signal intensity of the conus medullaris. SOFT TISSUES: Unremarkable. Normal aortic caliber. DISCS/SPINAL CANAL/NEURAL FORAMINA: L1-L2: Moderate disc space narrowing and decreased T2 signal intensity in the disc without visible focal posterior or lateral protrusion or significant neural foraminal stenosis. Anterior spondylosis anteriorly bulging disc L2-L3: Marked decreased disc height and T2 signal intensity with anterior osteophyte-bulging disc complex and mild bilateral uncovertebral osteophyte-disc complexes narrowing the bilateral neural foramen, mild, greater on the left. No spinal stenosis. Moderate Modic type endplate degenerative changes, low signal on inversion recovery images, high signal on T1 and T2, likely chronic. L3-L4: Marked decreased disc height, Modic type endplate degenerative changes of the opposing endplates, decreased T2 signal intensity in the disc, moderate annular disc bulge. Anterior disc protrusion with osteophytes and mild bilateral neural foraminal stenosis due to combined uncovertebral osteophytes, bulging disc and mild hypertrophic facet joint changes. No spinal stenosis. L4-L5: Moderate decreased disc height and decreased T2 signal intensity. Mild Modic type endplate changes, minimally increased in signal of the far right lateral endplate. Moderate proximal neural foraminal stenosis due to combined degenerative changes, mildly greater on the left. L5-S1: Moderate decreased disc height and moderate annular disc bulge with additional broad-based disc protrusion-extrusion the posterior midline, projecting roughly 7 mm distal to the expected disc margin, mildly elevating the posterior longitudinal ligament. No associated spinal stenosis. The extruded disc approaches the left S1 nerve root in the lateral recess without visible displacement. No martell spinal stenosis or high-grade neural foraminal stenosis. Facet joint hypertrophic changes. MRI/Spine Lumbar (Routine) IMPRESSION: Multilevel degenerative disc and Modic type endplate changes. Including small broad-based posterior fairly midline extruded disc-HNP with a broad base at L5-S1. No martell spinal stenosis. Multilevel neural foraminal stenosis and facet joint hypertrophic changes. Increased signal intensity in the central L5-S1 disc, and slightly increased signal intensity in L2-3 and L4-5 focally on the left. Not obviously typical appearance of osteomyelitis or discitis but consider enhanced imaging if early osteomyelitis-discitis is suspected. Electronically Signed: Venessa Ge MD at 4:06 EST ,
== END | disposition home or self-care (01) ==
LOC: MRI 07:21
PROVIDERS: PCP Nurse Practitioner Family; Referring Provider Orthopaedic Surgery; Visit Provider Orthopaedic Surgery
DX: M43.02 Spondylolysis, cervical region (principal); M43.06 Spondylolysis, lumbar region
CPT/HCPCS: 72141; 72148